=== PATIENT | male | born 1945 | race Two or more races ===

== ENCOUNTER 2018-10-20 11:54 | Emergency (ER) | payer MEDICARE, OTHER ==
[~2018-10-20] VITALS: Ht 182.9 cm; Wt 79.4 kg
[2018-10-20 12:02] VITALS: BP 137/53
[2018-10-20] MEDS ORDERED: AMOX/CLAVULANATE 875 MG TABLET PO ONE (12:30)
[2018-10-20] MEDS ORDERED: AMOX/CLAVULANATE 875 MG TABLET ONE (12:34)
--- NOTE | 2018-10-20 12:40 | NUR ---
DPatient discharged to home in stable condition. Written and verbal after care instructions given. Patient verbalizes understanding of instruction.
== END 2018-10-20 12:41 | disposition home or self-care (01) ==
LOC: ER 11:56
DX: J32.9 Chronic sinusitis, unspecified (principal); I10 Essential (primary) hypertension; E78.00 Pure hypercholesterolemia, unspecified; E11.9 Type 2 diabetes mellitus without complications; N40.0 Benign prostatic hyperplasia without lower urinary tract symptoms; F17.200 Nicotine dependence, unspecified, uncomplicated
CPT/HCPCS: 99283; A4606